=== PATIENT | female | born 1960 | race American Indian/Alaskan Native ===

== ENCOUNTER → 2017-09-06 | Emergency (ER) | payer OTHER ==
[~2017-09-06] VITALS: Ht 162.6 cm; Wt 95.2 kg
[~2017-09-06] MED LIST: DOCUPRENE100 MG PO; LORATADINE10 MG PO; OMEPRAZOLE20 MG PO; ULTRAM50 MG PO
--- NOTE | 2017-09-07 07:07 | EKG ---
[facility] [address] [facility] [place] [address] Signed Normal sinus rhythm Nonspecific ST and T wave abnormality Abnormal ECG No previous ECGs available Confirmed by SABINO HARDEN MD [id number] on 09/07/2017 7:07:14 AM Electronically Signed By: SABINO HARDEN MD 09/07/17 0707 PATIENT NAME: MUSHTAQ ESTRELLA Electrocardiogram DATE OF : 60 PHYSICIAN: SABINO HARDEN MD REPORT #: [id number] REPORT IS CONFIDENTIAL AND NOT TO BE RELEASED WITHOUT AUTHORIZATION
== END ==
LOC: ED 23:41
DX: R07.89 Other chest pain (principal); I10 Essential (primary) hypertension; F17.200 Nicotine dependence, unspecified, uncomplicated; Z79.899 Other long term (current) drug therapy
CPT/HCPCS: 71045; 80053; 84484; 85025; 85379; 93005; 93010; 99284